=== PATIENT | female | born 1965 | race Caucasian/White ===

== ENCOUNTER 2016-07-03 09:10 | Day surgery (SDC) | payer OTHER ==
[~2016-07-03] VITALS: Ht 162.6 cm; Wt 98.0 kg
[~2016-07-03 09:10] MED LIST: 0.9% Sodium Chloride 1,000 ML IV SCH; GLBR5T PO; HYDR-4003 PO; LOVA40TA PO; METF-496 PO; Sodium Chloride LOK Flush 10 mL Syringe IV PRN; fentaNYL-PF 50 mCg/mL 2 mL Inj IVPUSH PRN
[2016-07-03 10:20] VITALS: BP 117/71; PULSE 86; RESP 17; O2SAT 98
[2016-07-03] MEDS ORDERED: 0.9% Sodium Chloride 1,000 ML IV ONE (11:00)
--- NOTE | 2016-07-03 11:13 | PCM.ENDCOL ---
Colonoscopy Date of Service: Jul 03, 2016 Physician Abelino Scherer MD Indication for Procedure Screening colonoscopy, family history of colon cancer Post Procedure Dx & Findings: Diverticuli and hemorrhoids Procedure Colonoscopy Prep adequate Cecum 4 minutes Withdrawal 10 minutes PROCEDURE IN DETAIL: After unremarkable rectal examination Olympus video colonoscope was inserted into patient's anal canal was advanced to cecum. Landmarks are identified including the ileocecal valve and appendiceal orifice. Was withdrawn systematically. The mucosa of the cecum, ascending, transverse, descending, sigmoid, rectal mucosa lined with whitish, pink, smooth, glistening, normal-appearing mucosa, normal fine branching, underlying vascularity, normal haustra. The patient tolerated procedure and was transported to observation area. Patient had multiple diverticuli small to medium size. Mostly clustered in the sigmoid colon. However there a few all the way into the ascending colon. Impression Diverticuli Family history of colon cancer Recommendation Repeat colonoscopy 5 years Diverticular diet Presedation Assessment Risks and Benefits Informed consent was obtained from the patient after all risks and benefits including but not limited to drug reaction, infection, pain, bleeding, perforation, as well as alternatives were discussed. Patient monitoring Continuous pulse oximetry, cardiac monitoring, blood pressure monitoring, IV access, and oxygen at 2L per nasal cannula. Periprocedural Fentanyl: Fentanyl 125mcg Incrementally Midazolam: Midazolam 7mg Incrementally Complications There were no periprocedural complications identified. Post Procedure Plan Post Procedure Recommendations 1. Restrict activities today. 2. Resume normal activities in the morning. 3. Resume medications. 4. Patient informed of normal post procedure side effects as bloating, drowsiness, blood streaking in the stool. 5. average risk CRCS. If colon polyps come back as: -Hyperplastic- can repeat colonoscopy in 10 years -Tubular adenoma- repeat colonoscopy in 5 years -Tubulovillous/villous adenoma- repeat colonoscopy in 3 years -If any dysplasia- return to clinic as soon as possible 6. Please don't hesitate to call me with any questions. Abelino Scherer MD Jul 03, 2016 11:13
[2016-07-03 11:32] VITALS: BP 99/67; PULSE 81; RESP 14; O2SAT 98
[2016-07-03 11:42] VITALS: BP 106/62; PULSE 82; RESP 12; O2SAT 98
== END 2016-07-03 23:59 | disposition home or self-care (01) ==
LOC: END 09:10
PROVIDERS: ATTEND Internal Medicine
DX: Z12.11 Encounter for screening for malignant neoplasm of colon (principal); Z80.0 Family history of malignant neoplasm of digestive organs; K57.32 Diverticulitis of large intestine without perforation or abscess without bleeding; E11.9 Type 2 diabetes mellitus without complications; R00.2 Palpitations
CPT/HCPCS: 99153; G0105; G0500; J2250; J7030